=== PATIENT | male | born 1980 | race Caucasian/White ===

== ENCOUNTER 2022-05-26 09:13 | Emergency (ER) | payer BC ==
[2022-05-26] MEDS ORDERED: diphenhydrAMINE 50 MG/ML VIAL ONE (11:12)
[2022-05-26] MEDS ORDERED: Metoclopramide HCl 10 MG/2 ML VIAL ONE (11:12)
== END 2022-05-26 14:38 | disposition home or self-care (01) ==
LOC: ERS 09:13
DX: R51.9 Headache, unspecified (principal); Z86.73 Personal history of transient ischemic attack (TIA), and cerebral infarction without residual deficits
CPT/HCPCS: 70450; 96365; 96366; 96375; J1200; J2765

== ENCOUNTER 2023-02-03 19:00 | Outpatient (CLI) | payer BC | END 2023-02-03 19:01 | disposition home or self-care (01) | LOC: EDBD → SLEEPLAB 19:00 | PROVIDERS: ATTEND Internal Medicine Critical Care Medicine | DX: G47.33 Obstructive sleep apnea (adult) (pediatric) (principal); R53.83 Other fatigue | CPT/HCPCS: 95811 ==